=== PATIENT | male | born 1990 | race African-American/Black ===

== ENCOUNTER 2017-01-03 09:10 | Emergency (ER) | payer OTHER ==
[~2017-01-03] VITALS: Ht 175.3 cm; Wt 70.7 kg
[2017-01-03 09:13] VITALS: BP 124/90; TEMP 36.7; Ht 175.3 cm; Wt 70.7 kg
--- NOTE | 2017-01-03 09:41 | DIAGNOSTIC IMAGING REPORT ---
RIGHT WRIST 4 VIEWS CLINICAL HISTORY: Fall with right wrist pain. FINDINGS: 4 views of the right wrist are obtained. No prior studies are available for comparison at the time of dictation. The skeletal structures are well mineralized. No fracture is seen. The joint spaces of the wrist are well-maintained. Mild soft tissue swelling is noted. IMPRESSION: There is no radiographic evidence of right wrist fracture. Electronically signed by: Sony Charles M.D. 01/03/2017 9:40 AM Dictated Date/Time: 01/03/2017 9:39 AM
--- NOTE | 2017-01-03 09:57 | EMERGENCY ROOM VISIT NOTE ---
History Report prepared by Ashleyibca: Margot Ma Under the Supervision of: Dr. Maulik Pedroza D.O. First contact with patient: 09:17 Chief Complaint: WRIST PAIN Stated Complaint: RIGHT WRIST PAIN/INJURY-WORK RELATED INJURY History of Present Illness The patient is a 26 year old male who presents to the Emergency Room with complaints of right wrist pain starting this morning. The patient currently rates his discomfort as a 7/10 in severity. The patient was playing frisbee during training when he fell onto his wrist. He landed on the ground with his left arm stretched out in front of him. He denies any hand pain, shoulder pain, or left arm injury. He has no other complaints. Source of History: patient Onset: this morning Position: wrist (right) Symptom Intensity: 7/10 Quality: other (injury, pain) Timing: other (persistent) Note: Pt denies hand pain, shoulder pain, left arm injury. Review of Systems See HPI for pertinent positives & negatives. A total of 10 systems reviewed and were otherwise negative. Past Medical & Surgical Medical Problems: (1) Cystitis Nos (2) Nausea With Vomiting Family History Patient reports no known family medical history. Social History Smoking Status: Never Smoker Alcohol Use: occasionally Drug Use: none Marital Status: in relationship Housing Status: lives with roommate Occupation Status: employed Current/Historical Medications No Active Prescriptions or Reported Meds Allergies Coded Allergies: No Known Allergies (Unverified , 01/03/17) Physical Exam Vital Signs Date Time Temp Pulse Resp B/P (MAP) Pulse Ox O2 Delivery O2 Flow Rate FiO2 01/03/17 09:13 36.7 76 20 124/90 97 Room Air Physical Exam CONSTITUTIONAL/VITAL SIGNS: Reviewed / noted above. GENERAL: Non-toxic in appearance. INTEGUMENTARY: Warm, dry, and [place]. HEAD: Normocephalic. EYES: without scleral icterus or trauma. ENT/OROPHARYNX: clear and moist. LYMPHADENOPATHY/NECK: Is supple without lymphadenopathy or meningismus. RESPIRATORY: Lungs clear and equal. CARDIOVASCULAR: Regular rate and rhythm. GI/ABDOMEN: Soft and nontender. No organomegaly or pulsatile mass. No rebound or guarding. Normal bowel sounds. EXTREMITIES: Warm and well perfused. Tenderness and mild swelling to the right dorsal ulnar side of the wrist. BACK: No CVA tenderness. NEUROLOGICAL: Intact without focal deficits. PSYCHIATRIC: normal affect. MUSCULOSKELETAL: Normally developed with good muscle tone. Medical Decision & Procedures ER Provider Diagnostic Interpretation: X ray results and stated below per my interpretation and radiology interpretation. RIGHT WRIST 4 VIEWS CLINICAL HISTORY: Fall with right wrist pain. FINDINGS: 4 views of the right wrist are obtained. No prior studies are available for comparison at the time of dictation. The skeletal structures are well mineralized. No fracture is seen. The joint spaces of the wrist are well-maintained. Mild soft tissue swelling is noted. IMPRESSION: There is no radiographic evidence of right wrist fracture. Electronically signed by: Sony Charles M.D. 01/03/2017 9:40 AM Dictated Date/Time: 01/03/2017 9:39 AM ED Course 0918: Previous medical records were reviewed. The patient was evaluated in room B12B. A complete history and physical examination was performed. 0959: On reevaluation, the patient is resting comfortably. I discussed the results and findings with the patient. He verbalized agreement of the treatment plan. He was discharged home. Medical Decision Differential diagnosis: Etiologies such as fracture, dislocation, neurovascular compromise, compartment syndrome, soft tissue injury, as well as others were entertained. This is a 26-year-old male who presents to the ED with a chief complaint of right wrist pain after falling on it while playing Frisbee at [employer]. He was training at the time. The patient denies other injuries. There is some mild tenderness and swelling to the dorsal aspect of the ulnar portion of the wrist on exam. No obvious bony deformity. X-rays did not show fracture. The patient was placed in the right wrist lacer splint. He is told to avoid normal use of the injured area for about a week. He is felt to be stable for discharge. Medication Reconcilliation Current Medication List: was personally reviewed by me Blood Pressure Screening Patient's blood pressure: Normal blood pressure Blood pressure disposition: Did not require urgent referral Impression Primary Impression: Wrist sprain Scribe Attestation The scribe's documentation has been prepared under my direction and personally reviewed by me in its entirety. I confirm that the note above accurately reflects all work, treatment, procedures, and medical decision making performed by me. Departure Information Dispostion Home / Self-Care Prescriptions No Active Prescriptions or Reported Meds Referrals No Doctor, Assigned (PCP) Patient Instructions My [facility] Additional Instructions Use wrist splint for one week. May remove for bathing. Avoid normal use of right wrist for about 1 week for healing. After this use as tolerated. Take Tylenol or Motrin as needed for pain.
[2017-01-03 10:29] VITALS: PULSE 52; O2SAT 99
== END 2017-01-03 10:30 | disposition home or self-care (01) ==
LOC: C.EDB 09:12
DX: S63.501A Unspecified sprain of right wrist, initial encounter (principal); Y93.74 Activity, frisbee; Z87.448 Personal history of other diseases of urinary system; W19.XXXA Unspecified fall, initial encounter